=== PATIENT | male | born 1965 | race Caucasian/White ===

== ENCOUNTER 2021-02-20 09:29 | Outpatient (CLI) | payer MEDICARE, MEDICAID ==
[~2021-02-20 09:29] MED LIST: ENOX30SY10 SQ; GABA-338 PO; IBUP-1984 PO; METH-35 PO; NORCO10T PO; PARO20TA53 PO
[2021-02-20 10:31] LABS: BASOPHILS % (AUTO) 0.5 % (0-1); EOSINOPHILS # (AUTO) 0.1 X10'3 (0-0.9); EOSINOPHILS % (AUTO) 1.3 % (0-6); HEMATOCRIT 47.8 % (42.0-52.0); HEMOGLOBIN 16.3 g/dl (14.0-17.9); LYMPHOCYTES # (AUTO) 2.5 X10'3 (1.1-4.8); LYMPHOCYTES % (AUTO) 31.3 % (21-51); MEAN CORPUSCULAR HEMOGLOBIN 29.8 PG (27.0-31.0); MEAN CORPUSCULAR VOLUME 87.4 FL (78-98); MEAN PLATELET VOLUME 8.3 FL (7.4-10.4); MONOCYTES # (AUTO) 0.8 X10'3 (0-0.9); MONOCYTES % (AUTO) 10.2 % (2-12); NEUTROPHILS # (AUTO) 4.5 X10'3 (1.8-7.7); NEUTROPHILS % (AUTO) 56.7 % (42-75); PLATELET COUNT 287 X10'3 (140-440); RED BLOOD COUNT 5.46 X10'6 (4.70-6.10); RED CELL DISTRIBUTION WIDTH 13.1 % (11.5-14.5); WHITE BLOOD COUNT 7.9 X10'3 (4.5-11.0)
[2021-02-20 10:31] LABS: CLARITY,URINE CLEAR (Clear); COLOR,URINE YELLOW (Yellow); GLUCOSE, URINE NEGATIVE (Neg); KETONES,URINE NEGATIVE (Neg); LEUKOCYTE ESTERASE ,URINE TRACE (Neg); NITRITES, URINE NEGATIVE (Neg); OCCULT BLOOD,URINE NEGATIVE (Neg); PH,URINE 5.5 (4.8-8.0); PROTEIN,URINE NEGATIVE (Neg); UROBILINOGEN,URINE 0.2 E.U/dL (0.2-1.0)
[2021-02-20 10:33] LABS: UA COLLECTION TYPE VOIDED
[2021-02-20 10:39] LABS: BACTERIA,URINE 1+ /HPF (Neg); RBC,URINE 0-2 /HPF (0-2); SQUAMOUS EPITHELIAL CELL,UR FEW /LPF (FEW); WBC,URINE 0-4 /HPF (0-4)
[2021-02-20 10:44] LABS: ALANINE AMINOTRANSFERASE 30 U/L (12-78); ALKALINE PHOSPHATASE 88 IU/L (46-116); ANION GAP 10 (8-16); ASPARTATE AMINO TRANSFERASE 19 U/L (10-37); BILIRUBIN,TOTAL 0.5 MG/DL (0.1-1.0); BLOOD UREA NITROGEN 18 MG/DL (7-18); BUN/CREATININE RATIO 19.4 (5.4-32.0); CALCIUM 9.7 MG/DL (8.5-10.1); CHLORIDE 105 MMOL/L (99-107); CREATININE 0.93 MG/DL (0.60-1.10); GLUCOSE 113 MG/DL (70-104); POTASSIUM 4.2 MMOL/L (3.5-5.1); SODIUM 142 MMOL/L (135-145); TOTAL CARBON DIOXIDE 27.3 MMOL/L (24-32); TOTAL PROTEIN 7.9 G/DL (6.4-8.2); eGFR 84 ML/MIN
== END 2021-02-20 23:45 | disposition home or self-care (01) ==
LOC: LAB 09:29
PROVIDERS: ATTEND Podiatrist Foot & Ankle Surgery
DX: Z01.812 Encounter for preprocedural laboratory examination (principal); E55.9 Vitamin D deficiency, unspecified; N39.0 Urinary tract infection, site not specified
CPT/HCPCS: 36415; 80053; 81001; 82306; 85025; 87088

== ENCOUNTER 2021-03-18 10:50 | Emergency (ER) | payer MEDICARE, MEDICAID ==
[~2021-03-18] VITALS: Ht 185.4 cm; Wt 104.5 kg
[2021-03-18 10:58] VITALS: BP 137/109
[2021-03-18] MEDS ORDERED: oxyCODONE/APAP 10/325mg tablet PO ONE (11:10)
== END 2021-03-18 11:30 | disposition home or self-care (01) ==
LOC: ER 10:50
DX: M79.672 Pain in left foot (principal); M54.2 Cervicalgia; G89.29 Other chronic pain; Z87.891 Personal history of nicotine dependence; Z72.89 Other problems related to lifestyle; Z98.890 Other specified postprocedural states; Z56.0 Unemployment, unspecified; Z79.899 Other long term (current) drug therapy
CPT/HCPCS: 99284

== ENCOUNTER 2022-11-08 08:56 | Emergency (ER) | payer MEDICARE, MEDICAID ==
[~2022-11-08] VITALS: Ht 182.9 cm; Wt 113.0 kg
[2022-11-08] MEDS ORDERED: morphine 4 MG/ML inj SYRINge IV ONE (09:45)
[2022-11-08] MEDS ORDERED: OXYC1TAB17 PO (10:52)
[2022-11-08 11:30] VITALS: BP 123/69
== END 2022-11-08 13:34 | disposition home or self-care (01) ==
LOC: ER 08:57
DX: G89.29 Other chronic pain (principal); M25.572 Pain in left ankle and joints of left foot; Z56.0 Unemployment, unspecified
CPT/HCPCS: 96374; 99284; J2270

== ENCOUNTER 2023-09-21 20:42 | Emergency (ER) | payer BC, MEDICAID ==
[~2023-09-21] VITALS: Ht 185.4 cm; Wt 110.0 kg
[2023-09-21 20:47] VITALS: BP 130/58; PULSE 112; RESP 18; TEMP 98.2; O2SAT 98
[2023-09-21] MEDS ORDERED: LIDOCAINE 1%/EPI 1:100,000 inj. 10 ML multi-dose vial IJ ONE (21:45)
[2023-09-21] MEDS ORDERED: tetanus & diphtheria toxoid (Td) vaccine 0.5ml IMVAC ONE (21:50)
[2023-09-21] MEDS ORDERED: TETanus/Pertussis (Acell)/Diphther VAC/PF (Tdap-Adult) 0.5ml syringe IMVAC ONE ×2 (21:55→22:37)
== END 2023-09-21 22:47 | disposition home or self-care (01) ==
LOC: ER 20:43
DX: S61.211A Laceration without foreign body of left index finger without damage to nail, initial encounter (principal); X58.XXXA Exposure to other specified factors, initial encounter; Y93.89 Activity, other specified; Y92.89 Other specified places as the place of occurrence of the external cause; Y99.8 Other external cause status
CPT/HCPCS: 12001; 90715; 99282; A6222; A6402